=== PATIENT | female | born 1970 | race Caucasian/White ===

== ENCOUNTER 2017-07-31 01:38 | Emergency (ER) | payer BC, SELFPAY ==
[2017-07-31] MEDS ORDERED: Dexamethasone 10 MG/ML VIAL ONE (03:36)
[2017-07-31] MEDS ORDERED: Bicillin LA 1.2 MILLION UNITS/2 ML SYRINGE ONE (03:36)
[2017-07-31] MEDS ORDERED: Ondansetron HCl/PF 4 MG/2 ML Vial ONE (03:36)
[2017-07-31 05:49] LABS: MONO NEGATIVE CONTROL ZONE White (Negative) (White); MONO POSITIVE CONTROL Pink Line (Positive) (PINK/RED); Mononucleosis NEGATIVE (NEGATIVE)
== END 2017-07-31 05:50 | disposition home or self-care (01) ==
LOC: ERS 01:38
DX: J02.9 Acute pharyngitis, unspecified (principal); E03.9 Hypothyroidism, unspecified; F41.9 Anxiety disorder, unspecified
CPT/HCPCS: 36415; 86308; 96361; 96372; 96374; 96375; 96376; J0561; J1100; J2270; J2405

== ENCOUNTER 2021-06-01 12:12 | Emergency (ER) | payer OTHER ==
[2021-06-01 13:26] LABS: Mean Corpuscular HGB CONC 33.2 g/dL (32.0-36.0); Mean Corpuscular Hemoglobin 30.8 pg (27.0-31.0); Mean Corpuscular Volume 92.8 fL (78.0-98.0); Mean Platelet Volume 10.3 fL (7.4-10.4); Platelet Count 166 thou/uL (130-400); RBC Distribution Width 11.7 % (11.5-14.5); Red Blood Cell (RBC) Count 4.55 mill/uL (4.20-5.40); White Blood Cell (WBC) Count 4.9 thou/uL (4.8-10.8)
[2021-06-01 13:42] LABS: ALT (SGPT) 37 U/L (8-55); AST (SGOT) 38 U/L (5-34); Albumin 3.6 g/dL (3.5-5.0); Alkaline Phosphatase 97 U/L (40-110); Anion Gap 12 mmol/L (10-20); BUN (Urea Nitrogen) 11 mg/dL (9.8-20.1); Band 11 % (5-11); Bilirubin, Total 0.5 mg/dL (0.2-1.2); Calc. Creatinine Clearance 0 mL/min (70-130); Calcium 9.3 mg/dL (7.8-10.44); Carbon Dioxide 26 mmol/L (22-29); Chloride 104 mmol/L (98-107); Globulin 3.6 g/dL (2.4-3.5); Glucose 102 mg/dL (70-105); Lymphocytes 21 % (21-51); MDiff Complete? YES; Monocytes 27 % (0-10); Neutrophil 41 % (42-75); Platelet Morphology Comment Appears Adequate; Potassium 3.8 mmol/L (3.5-5.1); Protein, Total 7.2 g/dL (6.0-8.3); RBC Morphology Normal; Sodium 138 mmol/L (136-145)
[2021-06-01] MEDS ORDERED: Clindamycin/D5W 600 mg/50 ml Premix Bag ONE (15:13)
[2021-06-01] MEDS ORDERED: Clindamycin 150 MG CAP ONE (15:15)
== END 2021-06-01 15:29 | disposition home or self-care (01) ==
LOC: ERS 12:12
DX: L03.211 Cellulitis of face (principal); E03.9 Hypothyroidism, unspecified; Z79.899 Other long term (current) drug therapy
CPT/HCPCS: 36415; 70486; 80053; 85025; J3490